=== PATIENT | female | born 1955 | race Caucasian/White ===

== ENCOUNTER 2025-05-07 17:16 | Inpatient (IN) | payer MEDICARE ==
[2025-05-07 19:34] VITALS: BMI 21.7
[2025-05-08 05:23] LABS: Sodium 139 mmol/L (136-145)
[2025-05-08 05:24] LABS: Albumin 2.6 g/dL (3.1-4.5); Anion Gap 15 mmol/L (10-20); BUN (Urea Nitrogen) 28 mg/dL (9.8-20.1); Bilirubin, Total 0.4 mg/dL (0.3-1.2); Calc. Creatinine Clearance 37 mL/min (70-130); Calcium 8.6 mg/dL (7.6-10.4); Carbon Dioxide 28 mmol/L (23-31); Chloride 99 mmol/L (98-107); Glucose 104 mg/dL (80-115); Potassium 3.4 mmol/L (3.5-5.1)
[2025-05-08 05:25] LABS: ALT (SGPT) 6 U/L (Less than 34); AST (SGOT) 21 U/L (11-34); Alkaline Phosphatase 56 U/L (40-110); Globulin 3.3 g/dL (2.4-3.5)
[2025-05-08] MEDS: HYDROcodone/Acetaminophen 10/325 mg Tablet PO PRN (05:56)
[2025-05-08 06:30] LABS: #Basophils 0.1 thou/uL (0.0-0.2); #Eosinophils 0.3 thou/uL (0.0-0.7); #Lymphocytes 1.5 thou/uL (1.20-3.40); #Monocytes 0.6 thou/uL (0.11-0.59); #Neutrophils 4.9 thou/uL (1.40-6.50); %Basophils 1.1 % (0.0-1.0); %Eosinophils 4.1 % (0.0-10.0); %Lymphocytes 19.8 % (21.0-51.0); %Monocytes 8.7 % (0.0-10.0); %Neutrophils 66.2 % (42.0-75.0); Hematocrit 23.4 % (36.0-47.0); Hemoglobin 8.4 g/dL (12.0-16.0); Mean Corpuscular Hemoglobin 30.4 pg (27.0-31.0); Mean Corpuscular Volume 84.7 fl (78.0-98.0); Platelet Count 237 10x3/uL (130-400); Red Blood Cell (RBC) Count 2.77 mill/uL (4.20-5.40); White Blood Cell (WBC) Count 7.4 10x3/uL (4.8-10.8)
[2025-05-08] MEDS: Cholecalciferol 1,000 UNITS (25 MCG) TAB PO SCH (08:08)
[2025-05-08] MEDS: Aspirin 81 mg Enteric Coated Tablet PO SCH (08:08)
[2025-05-08] MEDS: Atenolol 50 MG TAB PO SCH (08:08)
[2025-05-08] MEDS: Pantoprazole 40 MG DR.TAB PO SCH (08:08)
[2025-05-08 18:41] VITALS: BMI 21.7
[2025-05-09] MEDS: Senokot S 8.6-50 MG TAB PO PRN (09:47)
[2025-05-10] MEDS: Clindamycin 150 MG CAP PO SCH (09:24)
[2025-05-12] MEDS: Acetaminophen 325 MG TAB PO PRN (20:40)
[2025-05-14] MEDS: Calcium Carbonate 500 MG ChewTAB PO PRN (16:21)
[2025-05-16] MEDS: Furosemide 40 MG TAB PO SCH (10:32)
[2025-05-16] MEDS: Pantoprazole 40 MG DR.TAB PO SCH (20:03)
[2025-05-17] MEDS: Furosemide 40 MG TAB PO SCH (06:31)
[2025-05-22 05:21] VITALS: BP 128/62; TEMP 98
== END 2025-05-22 12:30 | disposition home or self-care (01) | DRG 945 ==
LOC: BURMED 19:22
PROVIDERS: ADMIT Family Medicine; ATTEND Nurse Practitioner
PROC: F07Z9ZZ Gait Training/Functional Ambulation Treatment (ICD-10-PCS; principal; 2025-05-07)
DX: R53.1 Weakness (principal); K61.0 Anal abscess; Z96.642 Presence of left artificial hip joint; I73.9 Peripheral vascular disease, unspecified; E78.5 Hyperlipidemia, unspecified; Z90.710 Acquired absence of both cervix and uterus; Z90.49 Acquired absence of other specified parts of digestive tract; Z98.890 Other specified postprocedural states; Z79.82 Long term (current) use of aspirin; Z79.899 Other long term (current) drug therapy; Z88.2 Allergy status to sulfonamides; Z91.040 Latex allergy status
CPT/HCPCS: 36415; 80053; 85025